=== PATIENT | male | born 1935 | race Caucasian/White ===

== ENCOUNTER 2016-12-01 18:01 | Emergency (ER) | payer OTHER ==
[~2016-12-01] VITALS: Ht 167.6 cm; Wt 65.0 kg
[~2016-12-01 18:01] MED LIST: ACTOS15 MG PO; ALLOPURINOL300 MG PO; ASCORBIC ACID100 MG PO; ASCORBIC ACID250 MG PO; Aspirin E.C. PO; CEFDINIR300 MG PO; COREG25 M1 PO; COREG25 MG PO; CRANBERRY300 MG PO; CYANOCOBALAM1000 MCG PO; Catapres PO; Coreg PO; DIGOX125 MCG PO; DIGOXIN125 MCG PO; FERREX 150 FOR1 EACH PO; Feosol PO; IRON240 MG PO; LANOXIN,DIGI0.125 MG PO; LASIX10 MG PO; LASIX40 MG PO; LISINOPRIL40 MG PO; Lanoxin,Digitek PO; NORVASC10 M1 PO; NORVASC10 MG PO; NORVASC5 MG PO; Norvasc PO; PIOGLITAZONE HC15 MG PO; PRESERVISION A1 EAC2 PO; PRINIVIL20 MG PO; PRINIVIL40 MG PO; PROBIOTIC1 EAC1 PO; RAPAFLO8 MG PO; Vancocin Oral Soluti PO; Vibramycin, Doryx PO; ZESTRIL,PRINIVI40 MG PO; ZYLOPRIM100 MG PO; ZYLOPRIM150 MG PO; Zestril,Prinivil PO
[2016-12-01 19:01] LABS: MCH 29.9 PG (29.0-34.0); MCV 90.6 FL (86-99); MEAN PLAT.VOLUME 10.4 uM^3 (9.0-12.4); PLATELET COUNT 132 K/uL (156-360); RBC DIS.WIDTH-CV 14.2 % (11.8-14.6); RBC DIS.WIDTH-SD 45.5 % (39-53); RED BLOOD COUNT 2.98 M/uL (4.00-5.50); WHITE BLOOD COUNT 11.3 K/uL (4.1-10.2)
[2016-12-01 19:11] LABS: CHLORIDE 108 mEq/L (99-109); POTASSIUM 4.5 mEq/L (3.7-5.4); SODIUM 140 mEq/L (136-147)
[2016-12-01 19:12] LABS: INTER. NORMALIZED RATIO 1.1; PROTHROMBIN TIME 11.4 (9.2-11.2)
[2016-12-01 19:13] LABS: GLUCOSE 127 mg/dL (70-99)
[2016-12-01 19:15] LABS: ANION GAP 11 MEQ/L (2-14); TOTAL BILIRUBIN 0.6 mg/dL (0.0-1.0)
[2016-12-01 19:15] LABS: ADD MIUA? YES; BILIRUBIN NEGATIVE; BLOOD NEGATIVE; COLOR YELLOW ((YELLOW)); GLUCOSE (STRIP) NEGATIVE; KETONES NEGATIVE; LEUKOCYTES NEGATIVE; NITRITE NEGATIVE; PROTEIN (STRIP) 100; UROBILINOGEN 0.2 MG/DL (0.2-1.0)
[2016-12-01 19:17] LABS: ALKALINE PHOSPHATASE 98 IU/L (3-129); GFR ESTIMATE (CALCULATED) 29 mL/min/
[2016-12-01 19:18] LABS: UREA NITROGEN (BUN) 56 mg/dL (9-23)
[2016-12-01 19:20] LABS: LIPASE 30 U/L (1.0-51.0)
[2016-12-01 19:22] LABS: TROP-I INTERPRETATION NEGATIVE; TROPONIN-I 0.03 ng/mL (0.0-0.30)
[2016-12-01 19:24] LABS: BACTERIA RARE /HPF; EPITHELIAL CELLS RARE /HPF; HYALINE CASTS 0-5 /LPF; MUCUS TRACE /LPF; RED BLOOD CELLS 0-5 /HPF (0-5); WHITE BLOOD CELLS 0-5 /HPF (0-5)
[2016-12-01 19:26] LABS: DIGOXIN 1.8 ng/mL (0.8-2.0)
[2016-12-01 21:00] LABS: INFLUENZA A VIRAL ANTIGEN NEGATIVE; INFLUENZA B VIRAL ANTIGEN NEGATIVE
[2016-12-01 21:01] VITALS: BP 129/67
== END 2016-12-01 21:02 | disposition home or self-care (01) ==
LOC: EME 18:01
PROVIDERS: Emergency Medicine; Physician Assistant
DX: R18.8 Other ascites (principal); B34.9 Viral infection, unspecified; I11.0 Hypertensive heart disease with heart failure; I50.9 Heart failure, unspecified; I25.2 Old myocardial infarction; E11.9 Type 2 diabetes mellitus without complications; Z87.891 Personal history of nicotine dependence
CPT/HCPCS: 71020; 74176; 80053; 80162; 81003; 83605; 83690; 83880; 84484; 85027; 85610; 85730; 87040; 87502; 93005; 99281; 99285

== ENCOUNTER → 2016-12-03 | Outpatient (CLI) | payer OTHER ==
[2016-12-03 11:41] LABS: BODY FLUID PROTEIN < 3.0 G/DL
== END | disposition home or self-care (01) ==
LOC: RAD 07:26
PROVIDERS: Family Medicine
PROC: 0W9G3ZZ Drainage of Peritoneal Cavity, Percutaneous Approach (ICD-10-PCS; principal; 2016-12-03)
DX: R18.8 Other ascites (principal)
CPT/HCPCS: 84157

== ENCOUNTER → 2018-05-12 | Outpatient (CLI) | payer MEDICARE | END | disposition home or self-care (01) | LOC: CDC 11:08 | DX: I45.4 Nonspecific intraventricular block (principal); I51.7 Cardiomegaly; R94.31 Abnormal electrocardiogram [ECG] [EKG]; R07.9 Chest pain, unspecified; M27.9 Disease of jaws, unspecified | CPT/HCPCS: 93000 ==